=== PATIENT | female | born 1965 | race Caucasian/White ===

== ENCOUNTER 2020-06-07 20:45 | Emergency (ER) | payer BC, OTHER ==
[~2020-06-07] VITALS: Ht 165.1 cm; Wt 74.4 kg
[2020-06-08] MEDS ORDERED: HYDROcodone-ACET 7.5/325MG TAB PO ONE (00:15)
[2020-06-08 00:29] VITALS: BP 149/88
== END 2020-06-08 00:59 | disposition home or self-care (01) ==
LOC: ER 20:45
DX: S16.1XXA Strain of muscle, fascia and tendon at neck level, initial encounter (principal); S39.012A Strain of muscle, fascia and tendon of lower back, initial encounter; I72.8 Aneurysm of other specified arteries; I65.29 Occlusion and stenosis of unspecified carotid artery; K57.30 Diverticulosis of large intestine without perforation or abscess without bleeding; K21.9 Gastro-esophageal reflux disease without esophagitis; I10 Essential (primary) hypertension; V89.2XXA Person injured in unspecified motor-vehicle accident, traffic, initial encounter; Y93.89 Activity, other specified; Y92.410 Unspecified street and highway as the place of occurrence of the external cause; Y99.8 Other external cause status
CPT/HCPCS: 70450; 71250; 72100; 72125; 74176